=== PATIENT | female | born 1990 | race Two or more races ===

== ENCOUNTER 2025-04-01 09:13 | Inpatient (IN) | payer OTHER ==
[~2025-04-01] VITALS: Ht 154.9 cm; Wt 83.9 kg
[2025-04-01] MEDS ORDERED: 0.9 % SODIUM CHLORIDE 1,000 ML IV STA (09:21)
[2025-04-01] MEDS ORDERED: AFREZZA1 EAC4 IH (09:21)
--- NOTE | 2025-04-01 09:21 | NUR ---
PTE ALERTA Y ORIENTADA EN COMPANIA DE PARAMEDICOS QUIENES REFIEREN TRAER A PTE POR VOMITOS DESDE HACE 4 SHELTON. ESTA REFIERE SER DIABETICA DXT EN 388MG/DL
--- NOTE | 2025-04-01 09:44 | NUR ---
PACIENTE ALERTA Y ORIENTADA X 3. SE ORIENTA POR RN MENDOZA DE TRATAMIENTO YEMI SURYA MEDICA. REFIERE ENTENDER. ESTA CANALIZA, COLECTA MUESTRAS Y ADMINISTRA MEDICAMENTOS CON MEDIDAS ASEPTICAS CORRESPONDIENTES.
[2025-04-01 10:22] LABS: ABG PH 7.444 (7.35-7.45); ABG PO2 67.5 mmHg (80-100); BICARBONATE 30.0 mmol/l (23-25); o2 21 %
[2025-04-01 10:32] LABS: BASO % 0.1 % (0.1-1.2); EOS # 0.00 (0.04-0.54); EOS % 0.0 % (0.7-7.0); LYMPH # 0.93 (1.18-3.74); LYMPH % 5.7 % (19.3-53.1); MEAN PLATELET VOLUME 9.90 fl (9.4-12.4); MONO # 0.72 (0.24-0.82); MONO % 4.4 % (4.7-12.5); NEUT # 14.47 (1.56-6.13); NEUT % 89.4 % (34.0-71.1); RED CELL DISTRIBUTION WIDTH 13.8 % (11.6-14.4)
[2025-04-01 10:43] LABS: ALT/SGPT 18.0 U/L (12-78); AST/SGOT 11.0 U/L (15-37); BILIRUBIN TOTAL 0.66 mg/dL (0.3-1.2); BUN CREA RATIO 34.0 (7.0-25.0); CREATININE SERUM 1.25 mg/dL (0.55-1.02); GFR 49.06; GLOBULINA 4.8 G/DL (2.4-3.5); OSMOLALITY SERUM 300.0 MOSM/KG (275-295)
[2025-04-01 10:45] LABS: GLUCOSE FASTING 420.0 mg/dL (65-100)
[2025-04-01] MEDS ORDERED: INSULIN REGULAR, HUMAN 1,000 UNIT/10 ML UNITS IV ONE (11:00)
[2025-04-01] MEDS ORDERED: INSULIN REGULAR, HUMAN 1,000 UNIT/10 ML UNITS IV SCH (16:00)
[2025-04-01] MEDS ORDERED: CEFTRIAXONE SODIUM 2,000 MG in 0.9 % SODIUM CHLORIDE 100 ML IV SCH (17:36)
[2025-04-01] MEDS ORDERED: ONDANSETRON HCL 2 MG/ML VIAL IV ONE (17:45)
[2025-04-01] MEDS ORDERED: FAMOtidine 10 MG/ML (4ML VIAL) IV PUSH ONE (17:45)
[2025-04-01] MEDS ORDERED: 0.9 % SODIUM CHLORIDE 1,000 ML IV ONE ×2 (17:45)
[2025-04-01] MEDS ORDERED: 0.9 % SODIUM CHLORIDE 1,000 ML IV SCH (17:45)
[2025-04-01] MEDS ORDERED: INSULIN LISPRO 1,000 UNIT/10 ML UNITS SUBCUTANEO PRN (18:00)
[2025-04-01] MEDS ORDERED: DEXTROSE 50 % IN WATER 0.5 G/ML VIAL IV PRN (18:00)
[2025-04-01] MEDS ORDERED: ONDANSETRON HCL 4 MG in 0.9 % SODIUM CHLORIDE 50 ML IV PRN (18:00)
[2025-04-01] MEDS ORDERED: CEFTRIAXONE SODIUM 2,000 MG VIAL ONE (19:23)
[2025-04-01] MEDS ORDERED: ONDANSETRON HCL 2 MG/ML VIAL ONE (19:23)
[2025-04-01] MEDS ORDERED: FAMOTIDINE/PF 20 MG/2 ML VIAL ONE (19:24)
[2025-04-01 20:54] LABS: URINE APPEARANCE Clear; URINE BILIRRUBIN Negative (NEGATIVE); URINE BLOOD Trace; URINE COLOR Yellow; URINE LEUKOCYTE Negative; URINE NITRATE Negative; URINE UROBILINOGEN 0.2 E.U./dl
[2025-04-01 20:57] LABS: URINE BACTERIA 2580.9 uL (0.0-1933); URINE CAST 2.34 uL (0.0-1.40); URINE EPITHELIAL CELLS 77.6 uL (0.0-38.8); URINE RBC 2.7 uL (0.0-20.8); URINE WBC 18.1 uL (0.0-23.2)
[2025-04-01 21:07] LABS: COVID-19 AG NEGATIVE (NEGATIVE)
[2025-04-01 21:22] LABS: URINE GLUCOSE >=1000 MG/DL (NEGATIVE); URINE KETONE 80 (NEGATIVE)
[2025-04-01 21:23] LABS: URINE PROTEIN 100 (NEGATIVE)
[2025-04-01 22:14] LABS: INR 1.0
[2025-04-02 01:00] VITALS: BP 128/87; O2SAT 100
[2025-04-02 08:35] VITALS: BP 122/88; O2SAT 100
[2025-04-02] MEDS ORDERED: FAMOTIDINE/PF 20 MG in 0.9 % SODIUM CHLORIDE 8 ML IV PUSH SCH (09:00)
[2025-04-02] MEDS ORDERED: INSULIN GLARGINE,HUM.REC.ANLOG 1,000 UNITS/10 ML UNITS SUBCUTANEO SCH (09:54)
[2025-04-02] MEDS ORDERED: KETOROLAC TROMETHAMINE 60 MG VIAL IM ONE (13:23)
[2025-04-02 15:05] VITALS: BP 123/84; O2SAT 99
[2025-04-02] MEDS ORDERED: METOCLOPRAMIDE HCL 5 MG/ML VIAL IV SCH (16:00)
[2025-04-03 01:49] VITALS: BP 148/96; O2SAT 100
[2025-04-03 08:57] VITALS: BP 141/93; O2SAT 97
== END 2025-04-03 11:27 | disposition left against medical advice (07) | DRG 74 ==
LOC: ER 09:13 → MEDI 20:00
PROVIDERS: Emergency Medicine; General Practice; ADMIT Internal Medicine; ATTEND Internal Medicine
PROC: BW21ZZZ Computerized Tomography (CT Scan) of Abdomen and Pelvis (ICD-10-PCS; principal; 2025-04-01)
DX: E10.43 Type 1 diabetes mellitus with diabetic autonomic (poly)neuropathy (principal); N17.9 Acute kidney failure, unspecified; K31.84 Gastroparesis; E10.65 Type 1 diabetes mellitus with hyperglycemia; K29.70 Gastritis, unspecified, without bleeding; E86.0 Dehydration; E87.6 Hypokalemia; N18.9 Chronic kidney disease, unspecified; Z96.41 Presence of insulin pump (external) (internal); Z98.84 Bariatric surgery status; Z53.29 Procedure and treatment not carried out because of patient's decision for other reasons